=== PATIENT | male | born 1960 | race Caucasian/White ===

== ENCOUNTER 2018-12-08 16:58 | Emergency (ER) | payer SELFPAY ==
[2018-12-08 17:04] VITALS: BP 195/111; PULSE 93; RESP 15; TEMP 37.1; O2SAT 99; BMI 27.1
[2018-12-08] MEDS: TET,DIPH,PERTUSS(ACELL),VAC/PF 0.5 ML SYRINGE IM (17:11)
[2018-12-08 19:11] VITALS: BP 164/94; PULSE 90; RESP 20; O2SAT 98
--- NOTE | 2018-12-08 19:20 | PC.NURSE ---
six stitches placed by provider, well approximated edges, no drainage at this time. Blood cleaned off foot and heel, telfa non stick pad placed over wound and wrapped with coban.
--- NOTE | 2018-12-09 12:15 | ED_ITS ---
HPI - Wound/Laceration <ANNA Hernandez - Last Filed: 12/09/18 12:15> General Chief Complaint: Wound/Laceration Stated Complaint: laceration to heel of left foot camping Time Seen by Provider: 12/08/18 17:10 Source: patient Mode of arrival: ambulatory Limitations: no limitations History of Present Illness HPI narrative: The patient is a 58-year-old male current smoker presents with h is for chief complaint of laceration of the back was left heel. He states he cut his heel on a camper stair. He does not know when his last tetanus was. He states range of motion is intact. He states he has not seen a healthcare provider in about 15 years who is not sure if he is any medical history. Happened just prior to arrival. Was wrapped in a sling to help control the bleeding. Has not been washed out. Related Data Allergies Allergy/AdvReac Type Severity Reaction Status Date / Time No Known Drug Allergies Allergy Verified 12/08/18 17:04 Review of Systems <ANNA Hernandez - Last Filed: 12/09/18 12:15> Review of Systems GENERAL: Denies chills, fatigue, malaise, fever, sweats. HEENT: Denies sinus pain, ear pain, sore throat, difficulty swallowing, dizziness. RESPIRATORY: Denies dyspnea, cough, wheezing, hemoptysis, sputum. CARDIOVASCULAR: Denies chest pain, palpitations, orthopnea, edema, GASTROINTESTINAL: Denies nausea, vomiting, abdominal pain, diarrhea, constipation, melena. : Denies dysuria, frequency, incontinence, hematuria, urinary retention. MUSCULOSKELETAL: See HPI SKIN: See HPI NEUROLOGIC: Denies weakness, headache, numbness, change in speech, confusion, seizures, incoordination. PSYCHIATRIC: No concerning psychosocial issues. 12 point review of systems is negative except for those stated above PFSH <ANNA Hernandez - Last Filed: 12/09/18 12:15> Social History Smoking Status: Current every day smoker Social History Smoking Status: Current every day smoker Exam <ANNA Hernandez - Last Filed: 12/09/18 12:15> Narrative Exam Narrative: GENERAL: This is a well-nourished, well-developed patient, appea rs anxious sitting on stretcher with at bedside HEAD: Atraumatic. Normocephalic. No temporal or scalp tenderness. EYES: Pupils equal round and reactive. Extraocular motions intact. No scleral icterus. No injection or drainage. ENT: Nose without bleeding, purulent drainage or septal hematoma. Throat without erythema, tonsillar hypertrophy or exudate. Uvula midline. Airway patent. NECK: Trachea midline. No JVD or lymphadenopathy. Supple, nontender, no meningeal signs. CARDIOVASCULAR: Regular rate and rhythm RESPIRATORY: No cough. No increased respiratory effort. No accessory muscle use. EXTREMITIES: Full range of motion noted left foot and ankle. Positive pedal pulses. BACK: Nontender without deformity or crepitance. No flank tenderness. NEURO: AOx3. SKIN: 3 cm linear laceration across the back of the left heel. No obvious tendon or muscle involvement. Through dermis. No foreign body is visible. Oozing blood. Initial Vital Signs Initial Vital Signs: Vital Signs Temperature 98.7 F 12/08/18 17:04 Pulse Rate 93 H 12/08/18 17:04 Respiratory Rate 15 12/08/18 17:04 Blood Pressure 195/111 H 12/08/18 17:04 Pulse Oximetry 99 12/08/18 17:04 <Eduardo Louis DO - Last Filed: 12/10/18 02:42> Initial Vital Signs Initial Vital Signs: Vital Signs Temperature 98.7 F 12/08/18 17:04 Pulse Rate 93 H 12/08/18 17:04 Respiratory Rate 15 12/08/18 17:04 Blood Pressure 195/111 H 12/08/18 17:04 Pulse Oximetry 99 12/08/18 17:04 Procedures <TIFF Hernandez-BC - Last Filed: 12/09/18 12:15> Laceration Repair Laceration 1: Site: lower extremity Side (If applicable): left Size (cm): 3 Description: linear Depth: simple, single layer Local Anesthetic: lidocaine 1% and with bicarb Amount of anesthesia used (mL): 5 Pre-repair: wound explored, irrigated extensively (cleansed with hibiclense and sterile water ) and deep structures intact Skin layer closed with: nylon Size (cm): 3-0 Number of sutures: 6 Technique: simple, interrupted Course <BRUCE HernandezBC - Last Filed: 12/09/18 12:15> Orders Ordered: Discontinued Medications Diphtheria/Tetanus/Acell Pertussis (Adacel) 0.5 ml IM .ONCE ONE Stop: 12/08/18 17:11 Last Admin: 12/08/18 17:11 Dose: 0.5 ml <Eduardo Louis DO - Last Filed: 12/10/18 02:42> Orders Ordered: Discontinued Medications Diphtheria/Tetanus/Acell Pertussis (Adacel) 0.5 ml IM .ONCE ONE Stop: 12/08/18 17:11 Last Admin: 12/08/18 17:11 Dose: 0.5 ml MDM - Wound/Laceration <ANNA Hernandez - Last Filed: 12/09/18 12:15> MDM Narrative Medical decision making narrative: The patient is a 58-year-old male who presents with a chief complaint of a laceration. The patient does not know when his last, so it is updated. The patient refused an x-ray. He openly states that he will be walking on his foot regardless of the sutures, and being active regardless of the sutures, so I did elect to use a thicker thread with the understanding that it would be more likely to cause scarring. Patient was okay with this and liked that idea. Discussed at length monitoring for signs and symptoms of infection such as redness pus etc. Encouraged patient to follow up with his primary care provider given that his blood pressure readings were high multiple times and that he has not seen a PCP in about 15 years according to the patient. Did discuss suture removal in about 8-10 days. Patient's states should probably take them out herself. I discouraged this idea. No questions or concerns upon discharge. Discharge Plan Departure Patient Disposition: Home Clinical Impression: Laceration Discharge Date/Time: 12/08/18 19:10 Interventions: ED Discharge Assessment Last Done: 12/08/18 19:10 Instructions: DI for Laceration Repair, DI for Laceration Repair -- Simple, DI for Minor Laceration Activity Restrictions/Additional Instructions: We updated your tetanus today. Please monitor your laceration for signs and symptoms of infection such as pus, extending redness and fever. Please follow up with any of those occur. Please follow up for suture removal in 8-10 days. Please come back to emergency department for any acute concerns. We noted that her blood pressure was high today, please follow-up with a primary care provider. Referrals: Josh Clay MD [Physician] - <Eduardo Louis DO - Last Filed: 12/10/18 02:42> Cosign ED Attending Tobias Attestation: I was immediately available in the department for consultation. Documentation has been reviewed. I agree with assessment and plan.
== END 2018-12-08 19:10 | disposition home or self-care (01) ==
PROVIDERS: Emergency Provider Nurse Practitioner Family
DX: S91.312A Laceration without foreign body, left foot, initial encounter (principal); W26.8XXA Contact with other sharp object(s), not elsewhere classified, initial encounter; Z23 Encounter for immunization
CPT/HCPCS: 12002; 90471; 99283; 90715

== ENCOUNTER → 2022-08-29 11:38 | Outpatient (CLI) | payer OTHER, SELFPAY ==
[2022-08-29 12:54] LABS: Alanine Aminotransferase 36 IU/L (<50); Albumin 4.1 g/dL (3.5-5.0); Albumin Globulin Ratio 1.1 (1.0-2.8); Alkaline Phosphatase 84 U/L (38-126); Aspartate Aminotransferase 31 IU/L (17-59); BUN Creatinine Ratio 21.1 (6-22); Bilirubin Total 0.6 mg/dL (0.2-1.3); Blood Urea Nitrogen 15 mg/dL (9-20); Calcium 8.9 mg/dL (8.4-10.2); Carbon Dioxide 26 mmol/L (22-32); Chloride 105 mmol/L (98-107); Cholesterol 208 mg/dL (140-199); Estimated Glomerular Filt Rate > 60 mL/min (>60); Globulin 3.6 g/dL (1.7-4.1); Glucose 108 mg/dL (80-110); HDL Cholesterol 38 mg/dL (40-60); HEMOLYSIS < 15 (0-50); LDL Cholesterol Calculated 134 mg/dL (<100); Potassium 3.8 mmol/L (3.4-5.1); Sodium 139 mmol/L (137-145); Total Protein 7.7 g/dL (6.3-8.2); Triglycerides 181 mg/dL (35-150)
[2022-08-29 13:16] LABS: Prostate Specific Antigen Scrn 0.639 ng/mL (0.1-4.0)
== END ==
PROVIDERS: PCP Internal Medicine; Referring Provider Internal Medicine; Visit Provider Internal Medicine
DX: I10 Essential (primary) hypertension (principal); Z12.5 Encounter for screening for malignant neoplasm of prostate; Z13.1 Encounter for screening for diabetes mellitus; Z13.220 Encounter for screening for lipoid disorders; Z13.6 Encounter for screening for cardiovascular disorders
CPT/HCPCS: 36415; 80053; 80061; G0103

== ENCOUNTER 2022-11-04 12:54 | Day surgery (SDC) | payer OTHER, SELFPAY ==
[2022-11-04] VITALS (7 sets, daily range): BP systolic 107–162; BP diastolic 82–98; PULSE 69–94; RESP 10–18; TEMP 36.3–36.7; O2SAT 96–99; BMI 30.8
--- NOTE | 2022-11-04 | PATH_ITS ---
[facility] Accession Number: [id number] No. of containers..04 Tissue . 01 Material submitted: . PART A: colon - TRANSVERSE COLON POLYP PART B: colon - DESCENDING COLON POLYP PART C: colon - SIGMOID COLON POLYPS PART D: rectum - RECTAL POLYPS . 01 Clinical history: . SCREENING COLONOSCOPY . 01 Diagnosis: A. Transverse Colon, Polypectomy: Tubular adenoma. . B. Descending Colon, Polypectomy: Tubular adenoma. . C. Sigmoid Colon, Polypectomies: Hyperplastic polyps. . D. Rectum, Polypectomies: Hyperplastic polyps. MR 11/09/2022 1511 Local . 01 Electronically signed: . Shiloh Tracey MD, Pathologist NPI- [id number] . 01 Gross description: . Part A: TRANSVERSE COLON POLYP: Received in formalin is 1 fragment(s) of vale, soft tissue measuring 0.4 x 0.3 x 0.2 cm submitted entirely in 1 cassette(s) Part B: DESCENDING COLON POLYP: Received in formalin are 2 fragment(s) of vale, soft tissue measuring 0.3 x 0.2 x 0.2 cm to 0.6 x 0.3 x 0.3 cm submitted entirely in 1 cassette(s) Part C: SIGMOID COLON POLYPS: Received in formalin are 2 fragment(s) of vale, soft tissue measuring 0.2 x 0.2 x 0.2 cm to 0.3 x 0.3 x 0.2 cm submitted entirely in 1 cassette(s) Part D: RECTAL POLYPS: Received in formalin are 3 fragment(s) of vale, soft tissue measuring 0.2 x 0.2 x 0.2 cm to 0.3 x 0.2 x 0.2 cm submitted entirely in 1 cassette(s) /YESICA 11/08/[address] [place] [address] . 01 Pathologist provided ICD-10: D12.3, D12.4, K63.5, K62.1 . 01 CPT . 114415, 017229, 240532, [id number] Specimen Comment: A courtesy copy of this report has been sent to [facility]ology Performed at: 01 [facility] [address] [place] [address], [place], [place] [id number] MD Kevin Morgan MD Phone: [phone]
[2022-11-04] MEDS: LACTATED RINGERS 1,000 ML 150 ML IV (13:06)
--- NOTE | 2022-11-04 14:30 | P.HP_ITS ---
History of Present Illness History of Present Illness Date Patient Seen: 11/04/22 Time Patient Seen: 14:30 Chief complaint: Screening Colonoscopy Narrative: Mr. Goyla presents today for a screening colonoscopy. He has never had a colonoscopy before. He has no concerning symptoms has not had any bleeding or changes in bowel habits. However his mother did from colon cancer she was diagnosed around the age of 4747 years old. She at age 52. He has never had any type of surgical procedure at all but has no other questions at this time. PFSH Medical History Essential hypertension Surgical History No pertinent past surgical history Family History Mother Colon cancer Father Cancer of kidney Social History household members: spouse Smoking Status: Current every day smoker alcohol intake: current Meds Home Medications and Allergies Home Medications Medication Instructions Recorded Confirmed Type No Known Home Medications 06/26/22 10/04/22 History Allergies Allergy/AdvReac Type Severity Reaction Status Date / Time No Known Drug Allergies Allergy Verified 11/04/22 13:14 Exam Vital Signs (past 8 hours): - 11/04/22 13:14 Temperature 97.7 F Pulse Rate 93 H Respiratory Rate 17 Blood Pressure 162/96 H Pulse Oximetry 98 Oxygen Delivery Method Room Air Oxygen Delivery Method Room Air Const General: cooperative, healthy appearing and comfortable Nutritional Appearance: obese Eyes General: appearance normal, both eyes and all related structures Resp Effort & Inspection: normal respiratory effort and able to speak in complete sentences Skin General: no rashes or lesions noted Neuro General: patient alert, patient awake and patient oriented x3 Extrem General: normal to inspection Assessment & Plan Assessment and plan (1) Screening for colon cancer: Status: Acute Assessment & Plan narrative: Presents today for screening colonoscopy I discussed the risks benefits and alternatives including but not limited to perforation of the colon and an incomplete exam she fully understands these risks and would like to proceed.
--- NOTE | 2022-11-04 16:12 | P.OP.COLON_ITS ---
Operative Date/Time/Diagnoses Date of procedure: 11/04/22 Pre-op diagnosis: Colon cancer screening, family history of colon cancer. Procedure & Clinicians Study performed: Colonoscopy and biopsy Indications: Family history of colon cancer and colon cancer screening overdue Surgeon: Meghan Brown Procedure Notes Procedure in detail: Patient was taken to the endoscopy suite and placed in a left lateral decubitus position. A time-out was performed. With the help of Dr. Kellogg conscious sedation was induced and monitored throughout the case. A digital rectal exam was performed and there were no masses or strictures. The colonoscope was introduced into the anal canal and advanced through to the cecum. Bowel prep was good Shorter bowel prep score of 2. There were several diverticula throughout the sigmoid colon. As well as large diverticula also seen on the right side of the colon. These diverticula though large were otherwise unremarkable. The appendiceal orifice was photographed. And the scope was withdrawn slowly for 20 minutes. One small polyp was seen in the transverse colon and removed with biopsy forceps. In the descending colon larger polypoid approximately 1 cm polyp was snared and removed entirely. The sigmoid colon revealed 1 small polyp which was removed with 2 bites of the Jumbo forceps. There were 2 additional very very small polyps nearby this were also removed with biopsy forceps and sent in the same specimen jar. Upon further withdrawal there was another small rectal polyp that was removed with biopsy forceps. Patient tolerated the procedure well and went in good condition to the postoperative care unit there were no complications. Findings: divertiulosis and polyp(s) Specimen(s): other (1. Transverse colon polyp 2. Descending colon polyp 3. Sigmoid colon polyps x3 4. Rectal polyps) Complications: none Post-procedure Plan for aftercare: Follow-up exam in 3-5 years depending on the pathology. Recommend fiber supplementation.
== END 2022-11-04 15:58 | disposition home or self-care (01) ==
PROVIDERS: PCP Internal Medicine; Referring Provider Surgery; Visit Provider Surgery
PROC: 0DJD8ZZ Inspection of Lower Intestinal Tract, Via Natural or Artificial Opening Endoscopic (ICD-10-PCS; CPT 45378; principal; 2022-11-04 13:45)
DX: Z12.11 Encounter for screening for malignant neoplasm of colon (principal); Z80.0 Family history of malignant neoplasm of digestive organs; K57.30 Diverticulosis of large intestine without perforation or abscess without bleeding; D12.3 Benign neoplasm of transverse colon; D12.4 Benign neoplasm of descending colon; K62.1 Rectal polyp
CPT/HCPCS: 45380; J2704

== ENCOUNTER → 2024-07-18 15:33 | Outpatient (CLI) | payer BC, SELFPAY ==
[2024-07-18 20:09] LABS: Influenza A - CEPHEID Flu A NEGATIVE (NEGATIVE); Influenza B - CEPHEID Flu B NEGATIVE (NEGATIVE); Respiratory Syncytial Virus POSITIVE (Negative)
[2024-07-18 20:34] LABS: COVID-19 CEPHEID 4-PLEX PCR Negative (Negative)
== END ==
PROVIDERS: PCP Internal Medicine; Visit Provider Physician Assistant
DX: R05.1 Acute cough (principal)
CPT/HCPCS: 0241U

== ENCOUNTER → 2024-07-18 15:57 | Outpatient (CLI) | payer BC, SELFPAY ==
--- NOTE | 2024-07-18 15:58 | DI.RAD.S_ITS ---
PROCEDURE: XR CHEST 2V INDICATIONS: cough x 24 hrs, lifelong smoker TECHNIQUE: 2 views of the chest were acquired. COMPARISON: None. FINDINGS: Surgical changes and devices: None. Lungs and pleura: Peribronchial cuffing. No consolidation. Mediastinum: Mediastinal contours are normal. Heart size is normal. Bones and chest wall: No suspicious bony abnormalities. Soft tissues appear unremarkable. IMPRESSION: Peribronchial cuffing, typically indicating infectious or inflammatory bronchitis. Dictated by: Conrado Martinez M.D. on 07/21/2024 at 8:49 Approved by: Conrado Martinez M.D. on 07/21/2024 at 8:49
== END ==
PROVIDERS: PCP Internal Medicine; Referring Provider Physician Assistant; Visit Provider Physician Assistant
DX: J06.9 Acute upper respiratory infection, unspecified (principal); R05.1 Acute cough
CPT/HCPCS: 0241U; 71046